=== PATIENT | female | born 1975 | race Caucasian/White ===

== ENCOUNTER 2018-04-27 18:18 | Emergency (ER) | payer BC | END 2018-04-27 19:15 | disposition home or self-care (01) | LOC: SCSER 18:18 | DX: L03.211 Cellulitis of face (principal); E78.5 Hyperlipidemia, unspecified; I10 Essential (primary) hypertension; Z86.73 Personal history of transient ischemic attack (TIA), and cerebral infarction without residual deficits; F41.9 Anxiety disorder, unspecified; F32.9 Major depressive disorder, single episode, unspecified; Z79.899 Other long term (current) drug therapy; Z79.82 Long term (current) use of aspirin | CPT/HCPCS: 99282 ==

== ENCOUNTER 2019-10-08 10:06 | Outpatient (CLI) | payer BC ==
--- NOTE | 2019-10-08 10:31 | ULT ---
Exam: Bilateral renal ultrasound HISTORY: Chronic kidney disease COMPARISON: None FINDINGS: Right kidney: Normal cortical echotexture. No hydronephrosis. Right kidney measurements: 10.1 x 5.3 x 4.7 cm. Left kidney: Normal cortical echotexture. No hydronephrosis Left kidney measurements 4.9 x 3.9 x 10.0 cm. Urinary bladder: Normal mucosa. 241 mm bladder volume. IMPRESSION: No hydronephrosis.
== END 2019-10-08 10:07 | disposition home or self-care (01) ==
LOC: BICULT 10:06
PROVIDERS: ATTEND Internal Medicine Nephrology
DX: N18.2 Chronic kidney disease, stage 2 (mild) (principal)
CPT/HCPCS: 76770

== ENCOUNTER 2021-05-24 18:00 | Outpatient (CLI) | payer BC | END 2021-05-24 18:01 | disposition home or self-care (01) | LOC: SLEEPLAB 18:00 | PROVIDERS: ATTEND Family Medicine | DX: G47.33 Obstructive sleep apnea (adult) (pediatric) (principal); R53.83 Other fatigue; R06.83 Snoring; F41.9 Anxiety disorder, unspecified; I10 Essential (primary) hypertension; F90.9 Attention-deficit hyperactivity disorder, unspecified type; G47.00 Insomnia, unspecified; E66.9 Obesity, unspecified; Z68.42 Body mass index [BMI] 45.0-49.9, adult | CPT/HCPCS: 95806 ==

== ENCOUNTER 2021-12-05 07:04 | Outpatient (CLI) | payer BC | END 2021-12-05 07:05 | disposition home or self-care (01) | LOC: BICULT 07:04 | PROVIDERS: ATTEND Family Medicine | DX: R10.2 Pelvic and perineal pain (principal); N83.201 Unspecified ovarian cyst, right side | CPT/HCPCS: 76856; 93976 ==

== ENCOUNTER 2022-01-12 09:50 | Emergency (ER) | payer BC ==
[~2022-01-12 09:50] MED LIST: ISOVUE-370 76%-LOCM 1 ML ONE
[2022-01-12] MEDS ORDERED: Ketorolac Tromethamine 30 MG/ML VIAL ONE (10:25)
[2022-01-12] MEDS ORDERED: Morphine 4 MG/ML VIAL ONE (10:25)
[2022-01-12] MEDS ORDERED: Ondansetron PF 4 MG/2 ML Vial ONE (10:25)
[2022-01-12 10:59] LABS: #Eosinphils 0.4 thou/uL (0.0-0.7); #Lymphocytes 1.8 thou/uL (1.20-3.40); #Monocytes 0.9 thou/uL (0.11-0.59); #Neutrophils 8.9 thou/uL (1.40-6.50); %Basophils 0.3 % (0.0-1.0); %Eosinophils 3.3 % (0.0-10.0); %Lymphocytes 14.7 % (21.0-51.0); %Monocytes 7.5 % (0.0-10.0); %Neutrophils 74.2 % (42.0-75.0); Hemoglobin 14.8 g/dL (12.0-16.0); Mean Corpuscular HGB CONC 32.9 g/dL (32.0-36.0); Mean Corpuscular Hemoglobin 30.1 pg (27.0-31.0); Mean Corpuscular Volume 91.4 fL (78.0-98.0); Platelet Count 269 thou/uL (130-400); RBC Distribution Width 12.4 % (11.5-14.5); Red Blood Cell (RBC) Count 4.91 mill/uL (4.20-5.40); White Blood Cell (WBC) Count 11.9 thou/uL (4.8-10.8)
[2022-01-12 11:22] LABS: ALT (SGPT) 32 U/L (8-55); AST (SGOT) 18 U/L (5-34); Albumin 4.3 g/dL (3.5-5.0); Alkaline Phosphatase 102 U/L (40-110); Anion Gap 14 mmol/L (10-20); BUN (Urea Nitrogen) 13 mg/dL (7.0-18.7); Bilirubin, Total 0.7 mg/dL (0.2-1.2); Calc. Creatinine Clearance 0 mL/min (70-130); Calcium 9.4 mg/dL (7.8-10.44); Carbon Dioxide 25 mmol/L (22-29); Chloride 105 mmol/L (98-107); Estimated GFR 62; Globulin 3.1 g/dL (2.4-3.5); Glucose 109 mg/dL (70-105); Lipase 19 U/L (8-78); Potassium 4.6 mmol/L (3.5-5.1); Protein, Total 7.4 g/dL (6.0-8.3); Sodium 139 mmol/L (136-145)
[2022-01-12] MEDS ORDERED: Haloperidol Lactate 5 MG/ML VIAL ONE (12:11)
[2022-01-12] MEDS ORDERED: diphenhydrAMINE 50 MG/ML VIAL ONE (12:11)
[2022-01-12 12:53] LABS: Bilirubin Negative (Negative); Blood, Urine Negative (Negative); Clarity Clear (Clear); Glucose, Urine (Dipstick) Normal (Negative); Ketone, Urine Negative (Negative); Leukocyte Negative Leu/uL (Negative); Nitrite Negative (Negative); Protein, Urine (Dipstick) Negative (Neg-Trace); Urobilinogen Normal mg/dL (Less than 2); pH, Urine 5.5 (5.0-9.0)
== END 2022-01-12 13:03 | disposition home or self-care (01) ==
LOC: ERS 09:50
DX: R10.30 Lower abdominal pain, unspecified (principal); R11.2 Nausea with vomiting, unspecified; I10 Essential (primary) hypertension; E78.5 Hyperlipidemia, unspecified; E78.00 Pure hypercholesterolemia, unspecified; Z86.73 Personal history of transient ischemic attack (TIA), and cerebral infarction without residual deficits; Z79.899 Other long term (current) drug therapy
CPT/HCPCS: 74177; 80053; 81003; 83690; 85025; 96361; 96374; 96375; J1200; J1630; J1885; J2270; J2405; Q9966

== ENCOUNTER 2022-02-27 11:45 | Outpatient (CLI) | payer BC | END 2022-02-27 11:46 | disposition home or self-care (01) | LOC: LABBT 11:45 | PROVIDERS: ATTEND Internal Medicine | DX: Z20.822 Contact with and (suspected) exposure to COVID-19 (principal) | CPT/HCPCS: 87811 ==

== ENCOUNTER 2022-02-28 07:28 | Day surgery (SDC) | payer BC ==
[2022-02-27 09:34] VITALS: BMI 45.8
[2022-02-28] MEDS ORDERED: Fentanyl 100 MCG/2 ML VIAL ONE (09:20)
[2022-02-28] MEDS ORDERED: Lidocaine Viscous Sol 2% 15 ml UD Cup ONE (09:20)
[2022-02-28] MEDS ORDERED: PROPOFOL 200 MG/20 ML VIAL ONE (09:30)
[2022-02-28] MEDS ORDERED: Lidocaine 1% PF 5 ML VIAL ONE (09:30)
== END 2022-02-28 10:50 | disposition home or self-care (01) ==
LOC: SDC 07:28
PROVIDERS: ATTEND Internal Medicine
PROC: 0DB18ZX Excision of Upper Esophagus, Via Natural or Artificial Opening Endoscopic, Diagnostic (ICD-10-PCS; principal; 2022-02-28)
PROC: 0DB38ZX Excision of Lower Esophagus, Via Natural or Artificial Opening Endoscopic, Diagnostic (ICD-10-PCS; principal; 2022-02-28)
PROC: 0DBE8ZX Excision of Large Intestine, Via Natural or Artificial Opening Endoscopic, Diagnostic (ICD-10-PCS; principal; 2022-02-28)
DX: K52.9 Noninfective gastroenteritis and colitis, unspecified (principal); K20.90 Esophagitis, unspecified without bleeding; R13.10 Dysphagia, unspecified; K64.4 Residual hemorrhoidal skin tags; K64.8 Other hemorrhoids; I10 Essential (primary) hypertension; E78.00 Pure hypercholesterolemia, unspecified; K86.81 Exocrine pancreatic insufficiency; E66.9 Obesity, unspecified; Z68.42 Body mass index [BMI] 45.0-49.9, adult; Z86.010 Personal history of colon polyps; Z79.899 Other long term (current) drug therapy; Z91.010 Allergy to peanuts
CPT/HCPCS: 88305; J2704; J3010

== ENCOUNTER 2022-10-05 15:27 | Outpatient (CLI) | payer BC | END 2022-10-05 15:28 | disposition home or self-care (01) | LOC: ULT 15:27 | PROVIDERS: ATTEND Family Medicine | DX: M79.89 Other specified soft tissue disorders (principal) ==

== ENCOUNTER 2022-11-21 15:30 | Outpatient (CLI) | payer BC | END 2022-11-21 15:31 | disposition home or self-care (01) | LOC: DTY/OP 15:30 | PROVIDERS: ATTEND Surgery | DX: E66.01 Morbid (severe) obesity due to excess calories (principal) | CPT/HCPCS: 97802 ==

== ENCOUNTER 2023-01-18 08:30 | Inpatient (IN) | payer BC ==
[2023-01-18 11:39] VITALS: BMI 49.1
[2023-01-22] MEDS ORDERED: Heparin 5,000 UNITS/ML VIAL ONE (06:34)
[2023-01-22] MEDS ORDERED: Bupivacaine HCl 0.5%/Epinephrine 1:200,000/PF 30 ml Vial ONE (06:39)
[2023-01-22] MEDS ORDERED: fentaNYL PF 100 MCG/2 ML SYRINGE ONE ×2 (06:55→09:57)
[2023-01-22] MEDS ORDERED: SUGAMMADEX SODIUM 200 MG/2 ML VIAL ONE (06:56)
[2023-01-22] MEDS ORDERED: Dexmedetomidine 200 MCG/2 ML VIAL ONE (06:56)
[2023-01-22] MEDS ORDERED: Ketamine 50 MG/ML (10ML VIAL) ONE (06:56)
[2023-01-22] MEDS ORDERED: Propofol 500 MG/50 ML VIAL ONE (07:04)
[2023-01-22] MEDS ORDERED: CEFAZOLIN 2 GM VIAL ONE (07:31)
[2023-01-22] MEDS ORDERED: Sodium Chloride 0.9% 100 ML ONE (07:31)
[2023-01-22] MEDS ORDERED: Ondansetron PF 4 MG/2 ML Vial ONE ×2 (07:46→09:57)
[2023-01-22] MEDS ORDERED: Lidocaine 1% PF 5 ML VIAL ONE (07:46)
[2023-01-22] MEDS ORDERED: Dexamethasone 20 MG/5 ML VIAL ONE (07:46)
[2023-01-22] MEDS ORDERED: Rocuronium Bromide 10 MG/ML (10ML VIAL) ONE (07:46)
[2023-01-22] MEDS ORDERED: PROPOFOL 200 MG/20 ML VIAL ONE (07:46)
[2023-01-22] MEDS ORDERED: ePHEDrine Sulfate 50 MG/10 ML VIAL ONE (07:46)
[2023-01-22] MEDS ORDERED: PHENYLEPHRINE-NS 100 MCG/ML 10 ML SYRINGE ONE (07:46)
[2023-01-22] MEDS ORDERED: diphenhydrAMINE 50 MG/ML VIAL IM PRN (09:21)
[2023-01-22] MEDS ORDERED: Ondansetron HCl/PF 4 MG/2 ML Vial IVP PRN (09:21)
[2023-01-22] MEDS ORDERED: Ondansetron PF 4 MG/2 ML Vial IVP PRN ×2 (09:21→09:26)
[2023-01-22] MEDS ORDERED: diphenhydrAMINE 50 MG/ML VIAL IVP PRN ×2 (09:21→09:26)
[2023-01-22] MEDS ORDERED: FENTANYL 500 MCG/10 ML VIAL 2,000 MCG in Sodium Chloride 0.9% 60 ML IV PRN (09:21)
[2023-01-22] MEDS ORDERED: Naloxone HCl 0.4 mg/ml Vial IV PRN (09:21)
[2023-01-22] MEDS ORDERED: Promethazine HCl 25 MG/ML VIAL IM PRN ×3 (09:21→09:26)
[2023-01-22] MEDS ORDERED: diphenhydrAMINE 25 MG CAP PO PRN (09:21)
[2023-01-22] MEDS ORDERED: Glucagon 1 MG/ML KIT IM PRN (09:26)
[2023-01-22] MEDS ORDERED: Dextrose 50% Abboject 50 ML SYRINGE SLOW IVP PRN (09:26)
[2023-01-22] MEDS ORDERED: Ipratropium/Albuterol 3 ML NEB NEB PRN (09:26)
[2023-01-22] MEDS ORDERED: Dextrose 5% in Water 1,000 ML IV PRN (09:26)
[2023-01-22] MEDS ORDERED: hydrALAZINE 20 MG/ML VIAL SLOW IVP PRN (09:26)
[2023-01-22] MEDS ORDERED: Communication Order-Pharmacy FS SCH (09:30)
[2023-01-22] MEDS ORDERED: Promethazine HCl 25 MG/ML VIAL ONE (10:19)
[2023-01-22] MEDS ORDERED: D5 1/2 NS w/20 mEq KCL 1,000 ML ONE (10:46)
[2023-01-22] MEDS: D5 1/2 NS w/20 mEq KCL 1,000 ML IV SCH ×2 (10:47→20:01)
[2023-01-23] MEDS: D5 1/2 NS w/20 mEq KCL 1,000 ML IV SCH ×2 (03:41→12:09)
[2023-01-23] MEDS: Hydrocodone-Acetamin 15 ML UDCUP PO PRN ×2 (08:03→12:09)
[2023-01-23 08:09] VITALS: BP 136/85
[2023-01-23 08:24] LABS: #Eosinphils 0.1 thou/uL (0.0-0.7); #Monocytes 1.2 thou/uL (0.11-0.59); #Neutrophils 10.5 thou/uL (1.40-6.50); %Basophils 0.1 % (0.0-1.0); %Eosinophils 0.5 % (0.0-10.0); %Lymphocytes 19.6 % (21.0-51.0); %Monocytes 8.3 % (0.0-10.0); %Neutrophils 71.2 % (42.0-75.0); Hemoglobin 12.8 g/dL (12.0-16.0); Mean Corpuscular HGB CONC 32.1 g/dL (32.0-36.0); Mean Corpuscular Hemoglobin 29.3 pg (27.0-31.0); Mean Corpuscular Volume 91.3 fl (78.0-98.0); Mean Platelet Volume 10.2 fL (7.4-10.4); Platelet Count 257 10x3/uL (130-400); RBC Distribution Width 12.6 % (11.5-14.5); Red Blood Cell (RBC) Count 4.37 mill/uL (4.20-5.40); White Blood Cell (WBC) Count 14.7 10x3/uL (4.8-10.8)
[2023-01-23 08:26] VITALS: TEMP 97.6
[2023-01-23 08:49] LABS: Anion Gap 15 mmol/L (10-20); BUN (Urea Nitrogen) 6 mg/dL (7.0-18.7); Calc. Creatinine Clearance 171 mL/min (70-130); Calcium 8.5 mg/dL (7.8-10.44); Carbon Dioxide 18 mmol/L (22-29); Estimated GFR 93; Glucose 107 mg/dL (70-105); Potassium 4.1 mmol/L (3.5-5.1); Sodium 138 mmol/L (136-145)
[2023-01-23 08:50] LABS: Chloride 109 mmol/L (98-107)
[2023-01-23] MEDS ORDERED: Lisinopril 20 MG TAB PO SCH (09:00)
[2023-01-23] MEDS ORDERED: Sertraline 100 MG TAB PO SCH (09:00)
[2023-01-23] MEDS ORDERED: Pantoprazole 40 MG VIAL IVP SCH (09:00)
== END 2023-01-23 12:30 | disposition home or self-care (01) | DRG 621 ==
LOC: SURG A 01-22 06:19 → SJJU 01-22 12:43
PROVIDERS: ADMIT Surgery; ATTEND Surgery
PROC: 0D164ZA Bypass Stomach to Jejunum, Percutaneous Endoscopic Approach (ICD-10-PCS; principal; 2023-01-22)
PROC: 8E0W4CZ Robotic Assisted Procedure of Trunk Region, Percutaneous Endoscopic Approach (ICD-10-PCS; 2023-01-22)
DX: E66.01 Morbid (severe) obesity due to excess calories (principal); K21.9 Gastro-esophageal reflux disease without esophagitis; Z68.42 Body mass index [BMI] 45.0-49.9, adult; G47.33 Obstructive sleep apnea (adult) (pediatric); I10 Essential (primary) hypertension; E78.00 Pure hypercholesterolemia, unspecified; N18.9 Chronic kidney disease, unspecified; I12.9 Hypertensive chronic kidney disease with stage 1 through stage 4 chronic kidney disease, or unspecified chronic kidney disease; Z82.49 Family history of ischemic heart disease and other diseases of the circulatory system; Z90.49 Acquired absence of other specified parts of digestive tract; Z90.710 Acquired absence of both cervix and uterus; Z79.899 Other long term (current) drug therapy; Z98.890 Other specified postprocedural states; Z83.3 Family history of diabetes mellitus
CPT/HCPCS: 36415; 80048; 85025; C9113; J1100; J1644; J1650; J2405; J2550; J2704; J3480; J3490

== ENCOUNTER 2023-01-18 11:15 | Outpatient (CLI) | payer BC ==
[2023-01-18 12:26] LABS: #Basophils 0.1 10x3/uL (0.0-0.2); #Eosinphils 0.5 10x3/uL (0.0-0.5); #Monocytes 0.7 10x3/uL (0.0-1.1); #Neutrophils 7.9 10x3/uL (1.5-8.4); %Basophils 0.5 % (0.0-2.0); %Eosinophils 4.1 % (0.0-6.0); %Lymphocytes 27.2 % (18.0-47.0); %Monocytes 5.5 % (0.0-10.0); %Neutrophils 62.3 % (40.0-75.0); Hemoglobin 14.1 g/dL (12.0-15.5); Mean Corpuscular HGB CONC 33.5 g/dL (32.0-36.0); Mean Corpuscular Hemoglobin 29.1 pg (27.0-33.0); Mean Corpuscular Volume 86.8 fl (81.6-98.3); Mean Platelet Volume 10.6 fl (7.4-10.4); Platelet Count 345 10x3/uL (150-450); RBC Distribution Width 12.5 % (11.5-14.5); Red Blood Cell (RBC) Count 4.85 10x6/uL (3.90-5.03); White Blood Cell (WBC) Count 12.6 10x3/uL (3.5-10.5)
[2023-01-18 12:56] LABS: ALT (SGPT) 21 U/L (8-55); AST (SGOT) 16 U/L (5-34); Albumin 4.5 g/dL (3.5-5.0); Alkaline Phosphatase 78 U/L (40-110); Anion Gap 14 mmol/L (10-20); BUN (Urea Nitrogen) 23 mg/dL (7.0-18.7); Bilirubin, Total 0.6 mg/dL (0.2-1.2); Calc. Creatinine Clearance 0 mL/min (70-130); Calcium 9.2 mg/dL (7.8-10.44); Carbon Dioxide 24 mmol/L (22-29); Chloride 104 mmol/L (98-107); Estimated GFR 76; Globulin 2.5 g/dL (2.4-3.5); Glucose 98 mg/dL (70-105); Sodium 138 mmol/L (136-145)
[2023-01-18 19:53] LABS: Hemoglobin A1c 5.2 % (4.0-6.0)
== END 2023-01-18 11:16 | disposition home or self-care (01) ==
LOC: LABBT 11:15
PROVIDERS: ATTEND Surgery
DX: Z01.818 Encounter for other preprocedural examination (principal); E66.01 Morbid (severe) obesity due to excess calories
CPT/HCPCS: 71046; 80053; 83036; 85025; 93005; 93010

== ENCOUNTER 2023-02-11 13:27 | Day surgery (SDC) | payer BC ==
[2023-02-11] MEDS ORDERED: Ondansetron PF 4 MG/2 ML Vial IVP PRN (13:39)
[2023-02-11] MEDS ORDERED: Multivitamins, Adult 10 ML, Thiamine HCl 100 MG in Sodium Chloride 0.9% 1,000 ML IV SCH (13:45)
[2023-02-11] MEDS ORDERED: Sodium Chloride 0.9% 1,000 ML IV SCH (13:45)
[2023-02-11 16:39] VITALS: BP 108/79; TEMP 98.6
== END 2023-02-11 17:36 | disposition home or self-care (01) ==
LOC: ONC/OP 13:27
PROVIDERS: ATTEND Surgery
DX: E86.0 Dehydration (principal)
CPT/HCPCS: 96361; 96365; J3411; J7050

== ENCOUNTER 2023-02-15 12:33 | Day surgery (SDC) | payer BC ==
[2023-02-15] MEDS ORDERED: Ondansetron PF 4 MG/2 ML Vial IVP PRN (12:45)
[2023-02-15] MEDS ORDERED: Sodium Chloride 0.9% 1,000 ML IV SCH (12:45)
[2023-02-15] MEDS ORDERED: Multivitamins, Adult 10 ML, Thiamine HCl 100 MG in Sodium Chloride 0.9% 1,000 ML IV SCH (13:00)
[2023-02-15 14:36] VITALS: BP 120/69; TEMP 98.3
== END 2023-02-15 16:26 | disposition home or self-care (01) ==
LOC: ONC/OP 12:33
PROVIDERS: ATTEND Surgery
DX: E86.0 Dehydration (principal)
CPT/HCPCS: 96365; 96366; J3411; J7050

== ENCOUNTER 2023-06-20 09:56 | Outpatient (CLI) | payer BC | END 2023-06-20 09:57 | disposition home or self-care (01) | LOC: BICCT 09:56 | PROVIDERS: ATTEND Otolaryngology Plastic Surgery within the Head & Neck | DX: E04.2 Nontoxic multinodular goiter (principal) | CPT/HCPCS: 70491 ==

== ENCOUNTER → 2023-07-31 | Day surgery (SDC) | payer BC ==
[~2023-07-31] MED LIST changes: -ISOVUE-370 76%-LOCM 1 ML ONE; +Lidocaine 1% PF 5 ML VIAL ONE; +Sodium Bicarbonate 0.5 MEQ/ML SDV 10 ML ONE
== END ==
LOC: ULT 12:18
PROVIDERS: ATTEND Otolaryngology Plastic Surgery within the Head & Neck
PROC: 0GBG3ZX Excision of Left Thyroid Gland Lobe, Percutaneous Approach, Diagnostic (ICD-10-PCS; principal; 2023-07-31)
PROC: 0GBH3ZX Excision of Right Thyroid Gland Lobe, Percutaneous Approach, Diagnostic (ICD-10-PCS; principal; 2023-07-31)
DX: E04.2 Nontoxic multinodular goiter (principal)
CPT/HCPCS: 10005; 10006; 88173

== ENCOUNTER 2023-09-05 13:33 | Outpatient (CLI) | payer BC ==
[2023-09-05 14:26] LABS: Hematocrit 41.8 % (34.9-44.5)
[2023-09-05 14:49] LABS: BHCG - Serum Negative (NEGATIVE); Pregs Control Background? CLEAR/WHITE (CLR/WHITE); Pregs Control Bar Appear? YES (CONTROL BAR)
== END 2023-09-05 13:34 | disposition home or self-care (01) ==
LOC: LABBT 13:33
PROVIDERS: ATTEND Otolaryngology Plastic Surgery within the Head & Neck
DX: Z01.812 Encounter for preprocedural laboratory examination (principal); E07.9 Disorder of thyroid, unspecified
CPT/HCPCS: 84703; 85014

== ENCOUNTER 2023-09-11 07:44 | Observation (INO) | payer BC ==
[2023-09-05 14:04] VITALS: BMI 35.9
[2023-09-11] MEDS ORDERED: Famotidine/PF 20 mg/2ml Vial ONE (12:16)
[2023-09-11] MEDS ORDERED: PROPOFOL 20 ML ONE (12:21)
[2023-09-11] MEDS ORDERED: Lidocaine 2% PF 5 ML VIAL ONE (12:22)
[2023-09-11] MEDS ORDERED: fentaNYL PF 100 MCG/2 ML SYRINGE ONE ×2 (12:23→14:10)
[2023-09-11] MEDS ORDERED: Lidocaine 1% (PF) 30 ML VIAL ONE (12:30)
[2023-09-11] MEDS ORDERED: EPINEPHrine 1 MG/ML VIAL ONE (12:30)
[2023-09-11] MEDS ORDERED: CEFAZOLIN 1 GM VIAL ONE (12:57)
[2023-09-11] MEDS ORDERED: Ondansetron PF 4 MG/2 ML Vial ONE (13:06)
[2023-09-11] MEDS ORDERED: Ketorolac Tromethamine 30 MG (1 mL) VIAL ONE (13:06)
[2023-09-11] MEDS ORDERED: Dexamethasone 4 mg/ml Vial ONE (13:06)
[2023-09-11] MEDS ORDERED: ePHEDrine Sulfate 50 MG/10 ML VIAL ONE (13:10)
[2023-09-11] MEDS ORDERED: SUGAMMADEX SODIUM 200 MG/2 ML VIAL ONE (13:48)
[2023-09-11] MEDS ORDERED: Promethazine HCl 25 MG/ML VIAL IM PRN (14:14)
[2023-09-11] MEDS ORDERED: Meperidine HCl/PF 25 MG/ML VIAL SLOW IVP PRN (14:14)
[2023-09-11] MEDS ORDERED: Ondansetron HCl/PF 4 MG/2 ML Vial IVP PRN (14:14)
[2023-09-11] MEDS ORDERED: Bacitracin 1 PK TOP PRN (14:27)
[2023-09-11] MEDS ORDERED: Morphine 2 MG/ML VIAL SLOW IVP PRN (14:30)
[2023-09-11] MEDS ORDERED: fentaNYL 50 mcg/mL 1 mL Vial ONE (14:58)
[2023-09-11 15:21] LABS: Calcium 8.9 mg/dL (7.8-10.44)
[2023-09-11] MEDS: Sodium Chloride 0.45% 1,000 ML IV SCH (15:48)
[2023-09-11] MEDS: Calcium Carbonate 500 MG TAB PO SCH (15:59)
[2023-09-11] MEDS: Hydrocodone-Acetamin 15 ML UDCUP PO PRN (16:00)
[2023-09-11] MEDS: CEFAZOLIN 1 GM in Sodium Chloride 0.9% 100 ML IVPB SCH (21:32)
[2023-09-11 23:16] LABS: Calcium 8.3 mg/dL (7.8-10.44)
[2023-09-12] MEDS: Ondansetron PF 4 MG/2 ML Vial IVP PRN (00:19)
[2023-09-12 05:11] LABS: #Neutrophils 10.7 thou/uL (1.40-6.50); %Basophils 0.1 % (0.0-1.0); %Eosinophils 0.2 % (0.0-10.0); %Lymphocytes 6.9 % (21.0-51.0); %Monocytes 7.9 % (0.0-10.0); %Neutrophils 84.6 % (42.0-75.0); Hematocrit 36.4 % (36.0-47.0); Hemoglobin 12.2 g/dL (12.0-16.0); Mean Corpuscular HGB CONC 33.5 g/dL (32.0-36.0); Mean Corpuscular Hemoglobin 29.8 pg (27.0-31.0); Mean Corpuscular Volume 88.8 fl (78.0-98.0); Mean Platelet Volume 11.5 fL (7.4-10.4); Platelet Count 225 10x3/uL (130-400); RBC Distribution Width 12.8 % (11.5-14.5); White Blood Cell (WBC) Count 12.7 10x3/uL (4.8-10.8)
[2023-09-12 05:39] LABS: ALT (SGPT) 358 U/L (8-55); AST (SGOT) 292 U/L (5-34); Albumin 3.3 g/dL (3.5-5.0); Alkaline Phosphatase 207 U/L (40-110); Anion Gap 15 mmol/L (10-20); BUN (Urea Nitrogen) 15 mg/dL (7.0-18.7); Bilirubin, Total 0.4 mg/dL (0.2-1.2); Calc. Creatinine Clearance 125 mL/min (70-130); Calcium 7.9 mg/dL (7.8-10.44); Carbon Dioxide 21 mmol/L (22-29); Chloride 105 mmol/L (98-107); Estimated GFR 94; Globulin 2.3 g/dL (2.4-3.5); Glucose 179 mg/dL (70-105); Potassium 3.9 mmol/L (3.5-5.1); Protein, Total 5.6 g/dL (6.0-8.3); Sodium 137 mmol/L (136-145)
[2023-09-12 07:39] LABS: Calcium 8.3 mg/dL (7.8-10.44)
[2023-09-12] MEDS: Sertraline 100 MG TAB PO SCH (09:18)
[2023-09-12] MEDS: Calcitriol 0.25 MCG CAP PO SCH (09:18)
[2023-09-12] MEDS: Atorvastatin Calcium 10 MG TAB PO SCH (09:19)
[2023-09-12] MEDS: Magnesium Sulfate 1 GM, Admixture Fee 1 EACH in Sodium Chloride 0.9% 100 ML IVPB SCH (09:19)
[2023-09-12] MEDS: Calcium Gluconate 9.2 MEQ in Sodium Chloride 0.9% 100 ML IVPB SCH (09:20)
[2023-09-12] MEDS: Hydrocodone-Acetamin 15 ML UDCUP PO PRN (09:21)
[2023-09-12 12:19] VITALS: BP 145/70; TEMP 99.3
== END 2023-09-12 12:42 | disposition home or self-care (01) ==
LOC: SDC 07:44 → SURG A 14:18
PROVIDERS: ADMIT Otolaryngology Plastic Surgery within the Head & Neck; ATTEND Otolaryngology Plastic Surgery within the Head & Neck
PROC: 0GTG0ZZ Resection of Left Thyroid Gland Lobe, Open Approach (ICD-10-PCS; principal; 2023-09-12)
DX: C73 Malignant neoplasm of thyroid gland (principal); R13.10 Dysphagia, unspecified; K21.9 Gastro-esophageal reflux disease without esophagitis; I10 Essential (primary) hypertension; E78.00 Pure hypercholesterolemia, unspecified; F41.9 Anxiety disorder, unspecified; Z90.710 Acquired absence of both cervix and uterus; Z80.8 Family history of malignant neoplasm of other organs or systems; Z79.899 Other long term (current) drug therapy; Z88.8 Allergy status to other drugs, medicaments and biological substances; Z91.010 Allergy to peanuts
CPT/HCPCS: 36415; 80053; 82310; 83970; 85025; 88307; J0171; J0612; J0690; J1100; J1885; J2001; J2405; J2704; J3010; J3475; J3490; S0028

== ENCOUNTER 2023-09-26 14:36 | Outpatient (CLI) | payer BC | END 2023-09-26 14:37 | disposition home or self-care (01) | LOC: SCSMRI 14:36 | PROVIDERS: ATTEND Physician Assistant Medical | DX: E89.0 Postprocedural hypothyroidism (principal); R79.89 Other specified abnormal findings of blood chemistry; K83.8 Other specified diseases of biliary tract; Z98.84 Bariatric surgery status; Z90.49 Acquired absence of other specified parts of digestive tract | CPT/HCPCS: 74183 ==

== ENCOUNTER 2024-01-22 13:54 | Emergency (ER) | payer BC ==
[2024-01-22 14:45] LABS: #Basophils 0.07 10x3/uL (0.0-0.2); %Basophils 0.8 % (0.0-1.0); %Eosinophils 2.2 % (0.0-10.0); %Lymphocytes 29.7 % (21.0-51.0); Hematocrit 42.9 % (36.0-47.0); Hemoglobin 14.6 g/dL (12.0-16.0); Mean Corpuscular Hemoglobin 30.9 pg (27.0-31.0); Mean Corpuscular Volume 90.7 fL (78.0-98.0); Mean Platelet Volume 11.1 fL (7.4-10.4); Platelet Count 254 10x3/uL (130-400); Red Blood Cell (RBC) Count 4.73 mill/uL (4.20-5.40)
[2024-01-22 15:01] LABS: ALT (SGPT) 55 U/L (8-55); AST (SGOT) 38 U/L (5-34); Albumin 3.8 g/dL (3.5-5.0); Alkaline Phosphatase 106 U/L (40-110); Anion Gap 13 mmol/L (10-20); BUN (Urea Nitrogen) 18 mg/dL (7.0-18.7); Bilirubin, Total 0.6 mg/dL (0.2-1.2); Calc. Creatinine Clearance 0 mL/min (70-130); Calcium 8.4 mg/dL (7.8-10.44); Carbon Dioxide 21 mmol/L (22-29); Chloride 110 mmol/L (98-107); Estimated GFR 75; Globulin 2.2 g/dL (2.4-3.5); Glucose 159 mg/dL (70-105); Potassium 3.8 mmol/L (3.5-5.1); Sodium 140 mmol/L (136-145)
[2024-01-22 15:06] LABS: Troponin I Less than 0.010 ng/mL (< 0.028)
[2024-01-22] MEDS ORDERED: Multivitamins, Adult 10 ML, Thiamine HCl 100 MG, Folic Acid 1 MG in Dextrose 5 %-0.45 %... IV SCH (15:15)
[2024-01-22 15:52] LABS: Thyroid Stimulating Hormone 9.5182 uIU/mL (0.35-4.94)
[2024-01-22 16:01] LABS: Magnesium 1.8 mg/dL (1.6-2.6)
[2024-01-22 16:23] LABS: Free T4 (Free Thyroxine) 0.64 ng/dL (0.70-1.48)
== END 2024-01-22 18:30 | disposition home or self-care (01) ==
LOC: ERS 13:54
DX: R42 Dizziness and giddiness (principal); R29.700 NIHSS score 0; I10 Essential (primary) hypertension
CPT/HCPCS: 36415; 70450; 80053; 83735; 84439; 84443; 84481; 84484; 85025; 93005; J3411; J7042

== ENCOUNTER 2024-02-05 13:38 | Outpatient (CLI) | payer BC | END 2024-02-05 13:39 | disposition home or self-care (01) | LOC: NM 13:38 | PROVIDERS: ATTEND Internal Medicine Endocrinology, Diabetes & Metabolism | DX: C73 Malignant neoplasm of thyroid gland (principal) | CPT/HCPCS: 79005; A9517 ==